=== PATIENT | female | born 1970 | race Hispanic/Latino ===

== ENCOUNTER 2017-02-21 00:28 | Emergency (ER) | payer BC ==
[2017-02-21 01:03] VITALS: BP 101/73; PULSE 93; RESP 16; TEMP 97.5; O2SAT 99
[2017-02-21] MEDS ORDERED: Oxycodone/Acetaminophen 5/325 mg Tab PO STA (01:35)
[2017-02-21] MEDS ORDERED: Oxycodone/Acetaminophen 5/325 mg Tab ONE (01:48)
--- NOTE | 2017-02-21 02:25 | C.PDOC ---
History Of Present Illness 46yo female come in for evaluation of left sided earache gradually worsen for past 3-4 days. Pt sts, " pain is starts from my TMJ and radiates down to right lower jaw". Pt sts, was seen by PMD early today and received Rx: Zithromax, took one dose today. Otherwise, pt denies known trauma or injury, fever, chills , headache, dizziness, vertigo, visual changes, ear discharges, toothache, drooling, trismus, dyspnea, SOB, wheezing, or any other active complaints . At the time of evaluation, pt appears in pain. Time Seen by Provider: 02/21/17 01:28 Chief Complaint (Nursing): ENT Problem History Per: Patient Onset/Duration Of Symptoms: Gradual Current Symptoms Are (Timing): Worse Past Medical History Reviewed: Historical Data, Nursing Documentation, Vital Signs Vital Signs: Last Vital Signs Temp 97.5 F L 02/21/17 00:58 Pulse 93 H 02/21/17 00:58 Resp 16 02/21/17 00:58 BP 101/73 02/21/17 00:58 Pulse Ox 99 02/21/17 00:58 - Medical History PMH: Asthma Surgical History: Cholecystectomy Family History: States: No Known Family Hx - Social History Hx Tobacco Use: Yes Hx Alcohol Use: No Hx Substance Use: Yes - Immunization History Hx Tetanus Toxoid Vaccination: Yes Hx Influenza Vaccination: No Hx Pneumococcal Vaccination: No Review Of Systems Except As Marked, All Systems Reviewed And Found Negative. Constitutional: Negative for: Fever, Chills ENT: Positive for: Ear Pain. Negative for: Ear Discharge, Nose Discharge, Nose Congestion, Mouth Pain, Mouth Swelling, Throat Pain Cardiovascular: Negative for: Chest Pain Respiratory: Negative for: Cough, Shortness of Breath, Wheezing Gastrointestinal: Negative for: Nausea, Vomiting Musculoskeletal: Negative for: Neck Pain Skin: Negative for: Rash, Lesions Neurological: Negative for: Weakness, Numbness, Altered Mental Status, Headache , Dizziness Physical Exam - Physical Exam Appears: Well, Non-toxic, No Acute Distress Skin: Normal Color, Warm, No Rash Head: Normacephalic Eye(s): bilateral: PERRL Ear(s): Bilateral: Normal Nose: No Flaring, No Discharge Oral Mucosa: Moist, No Drooling, No Trismus Tongue: Normal Appearing Lips: Normal Appearing Teeth: No Tender To Palpation, Other (tenderness over Left TMJ extends down to Left mandibular ramus) Gingiva: No Erythema, No Abscess Throat: No Erythema, No Exudate, No Drooling Neck: No Midline Cervical Tenderness, No Paracervical Tenderness, No Step Off Deformity, Supple Lymphatic: No Adenopathy (cervical) Cardiovascular: Rhythm Regular, No JVD, Other ((-) carotid bruits B/L) Respiratory: Normal Breath Sounds, No Decreased Breath Sounds, No Accessory Muscle Use, No Stridor, No Wheezing Extremity: Normal ROM, No Deformity Neurological/Psych: Oriented x3, Normal Speech ED Course And Treatment O2 Sat by Pulse Oximetry: 99 Pulse Ox Interpretation: Normal Progress Note: On re-evaluation, pt appears comfortable, reports moderate improvement in pain 2/10 now. AFebrile, hemodynamicaly, non-oxic, tolerate Po well in ED. PulsEOx. ENT: (+) tenderness over left TMJ and lateral aspect left side of face, otherwise no acute findings, no drooling, no trismus. uvula midline, no edema. Neck: Supple, (-) meningeal sign, (-) JVD, (-) lymphodenopathy. Lungs: CTA B/L, BS equal B/L. Neuorlogicaly intact. Pt has clinical findings c/w left trigeminal neuralgia vs left TMJ arthralgia. Pt advised and ref. to f/[facility] PMD, ENT in 2-3 days for re-eavl. reurn to Ed if any worsening or new changes. Disposition Counseled Patient/Family Regarding: Diagnosis, Need For Followup, Rx Given - Disposition Referrals: Jaciel Campos MD [Medical Doctor] - Disposition: HOME/ ROUTINE Disposition Time: 02:20 Condition: STABLE Additional Instructions: KEEP AREA WARM, AVOID COLD AIR TAKE MEDICATION PRESCRIBED FOLLOW UP WITH PMD IN 2-3 DAYS FOR RE-EVALUATION. RETURN TO ED IF ANY WORSENING OR NEW CHANGES. Prescriptions: Prednisone [Deltasone] 20 mg PO DAILY #3 tablet traMADol [Ultram] 50 mg PO TID #7 tab Instructions: Trigeminal Neuralgia (ED), Temporomandibular Disorder (ED) - Clinical Impression Clinical Impression: Trigeminal neuralgia, TMJ arthralgia
== END 2017-02-21 02:20 | disposition home or self-care (01) ==
LOC: C.ER 00:28
DX: G50.0 Trigeminal neuralgia (principal); M26.622 Arthralgia of left temporomandibular joint; Z87.891 Personal history of nicotine dependence